=== PATIENT | male | born 1965 | race Caucasian/White ===

== ENCOUNTER 2022-12-18 10:57 | Outpatient (CLI) | payer OTHER | END 2022-12-18 10:58 | disposition home or self-care (01) | LOC: LABBT 10:57 | PROVIDERS: ATTEND Specialist | DX: Z01.810 Encounter for preprocedural cardiovascular examination (principal); K40.90 Unilateral inguinal hernia, without obstruction or gangrene, not specified as recurrent; K42.9 Umbilical hernia without obstruction or gangrene | CPT/HCPCS: 36415; 80053; 80061; 81001; 83036; 84443; 85025; 93005; 93010; G0103 ==

== ENCOUNTER 2022-12-22 10:58 | Day surgery (SDC) | payer OTHER ==
[2022-12-18 13:04] VITALS: BMI 33.7
[2022-12-22] MEDS ORDERED: Ketorolac Tromethamine 30 MG/ML VIAL ONE (12:35)
[2022-12-22] MEDS ORDERED: Acetaminophen 500 MG TAB ONE (12:35)
[2022-12-22] MEDS ORDERED: Bupivacaine/Epinephrine 0.25% 30 ML VIAL ONE (14:42)
[2022-12-22] MEDS ORDERED: fentaNYL PF 100 MCG/2 ML SYRINGE ONE (16:12)
[2022-12-22] MEDS ORDERED: HYDROmorphone 0.5 MG/0.5 ML SYRINGE ONE (16:13)
[2022-12-22] MEDS ORDERED: Sodium Chloride 0.9% 100 ML ONE (16:21)
[2022-12-22] MEDS ORDERED: CEFAZOLIN 2 GM VIAL ONE (16:21)
[2022-12-22] MEDS ORDERED: Glycopyrrolate 0.2 MG/ML 5 ML SYRINGE ONE (16:33)
[2022-12-22] MEDS ORDERED: NEOSTIGMINE 3 MG/3 ML SYR 3 MG/3 ML SYRINGE ONE (16:33)
[2022-12-22] MEDS ORDERED: ePHEDrine 50 MG/ML VIAL ONE (16:33)
[2022-12-22] MEDS ORDERED: PROPOFOL 200 MG/20 ML VIAL ONE (16:33)
[2022-12-22] MEDS ORDERED: Ondansetron PF 4 MG/2 ML Vial ONE (16:33)
[2022-12-22] MEDS ORDERED: Lidocaine 1% PF 5 ML VIAL ONE (16:33)
[2022-12-22] MEDS ORDERED: Dexamethasone 20 MG/5 ML VIAL ONE (16:33)
[2022-12-22] MEDS ORDERED: Rocuronium Bromide 10 MG/ML (10ML VIAL) ONE (16:33)
[2022-12-22] MEDS ORDERED: HYDROcodone/Acetaminophen 5/325 mg Tablet ONE (19:58)
== END 2022-12-22 20:40 | disposition home or self-care (01) ==
LOC: SDC 10:58
PROVIDERS: ATTEND Specialist
PROC: 8E0W4CZ Robotic Assisted Procedure of Trunk Region, Percutaneous Endoscopic Approach (ICD-10-PCS; principal; 2022-12-22)
PROC: 0YU64JZ Supplement Left Inguinal Region with Synthetic Substitute, Percutaneous Endoscopic Approach (ICD-10-PCS; principal; 2022-12-22)
PROC: 0WUF0JZ Supplement Abdominal Wall with Synthetic Substitute, Open Approach (ICD-10-PCS; principal; 2022-12-22)
DX: K40.90 Unilateral inguinal hernia, without obstruction or gangrene, not specified as recurrent (principal); K42.9 Umbilical hernia without obstruction or gangrene; D17.6 Benign lipomatous neoplasm of spermatic cord; I10 Essential (primary) hypertension; E66.9 Obesity, unspecified; Z68.33 Body mass index [BMI] 33.0-33.9, adult; Z86.16 Personal history of COVID-19; Z79.899 Other long term (current) drug therapy
CPT/HCPCS: C1781; C1889; J1100; J1170; J1885; J2405; J2704; J3490